=== PATIENT | male | born 1995 | race Caucasian/White ===

== ENCOUNTER 2020-04-04 14:49 | Emergency (ER) | payer SELFPAY ==
[2020-04-04 14:55] VITALS: BP 124/94; PULSE 89; TEMP 98.4; BMI 29.0
--- NOTE | 2020-04-04 14:58 | PDOC ---
Rapid Medical Evaluation Chief Complaint: Bone Injury Time Seen by Provider: 04/04/20 14:55 Medical Evaluation: Allergies Allergy/AdvReac Type Severity Reaction Status Date / Time No Known Allergies Allergy Verified 04/04/20 14:50 Vital Signs Temp Pulse Resp BP Pulse Ox 98.4 F 89 20 124/94 100 04/04/20 14:50 04/04/20 14:50 04/04/20 14:50 04/04/20 14:50 04/04/20 14:50 04/04/20 14:57 I have performed a brief in-person evaluation of this patient. The patient presents with a chief complaint of:R wrist injury at work today Pertinent physical exam findings:deformity to R wrist I have ordered the following:xray The patient will proceed to the ED for further evaluation. Discharge Disposition - Diagnosis Wrist injury Qualifiers: Encounter type: initial encounter Laterality: right Qualified Code(s): S69.91XA - Unspecified injury of right wrist, hand and finger(s), initial encounter - Referrals - Patient Instructions - Post Discharge Activity
--- NOTE | 2020-04-04 15:15 | PDOC ---
History of Present Illness - General Chief Complaint: Bone Injury Stated Complaint: INJURY Time Seen by Provider: 04/04/20 14:55 - History of Present Illness Initial Comments: 04/04/20 15:13 25-year-old male without comorbidities presents for evaluation of right wrist pain. Patient is current on tetanus. He states he was working with a jackhammer with another worker when the jackhammer accidentally struck him in his right wrist. He points to the radial aspect of the right wrist as the area of his discomfort. Past History - Medical History Allergies/Adverse Reactions: Allergies Allergy/AdvReac Type Severity Reaction Status Date / Time No Known Allergies Allergy Verified 04/04/20 14:50 COPD: No Other medical history: DENIES - Immunization History Immunization Up to Date: Yes - Psycho-Social/Smoking History Smoking History: Never smoked - Substance Abuse Hx (Audit-C & DAST Scrn) How often the patient has a drink containing alcohol: 2-4 times / month Number of drinks the patient has on a typical day: 1 or 2 How often the patient has six or more drinks on one occasion: Never Score: In Men: 4 or > Positive; In Women: 3 or > Positive: 2 Screen Result (Pos requires Nsg. Audit-10AR): Negative In the last yr the pt used illegal drug/Rx for NonMed reason: No Score: Yes response is considered Positive: 0 Screen Result (Positive result requires Nsg. DAST-10): Negative Review of Systems - Review of Systems Musculoskeletal: Yes: Joint Pain *Physical Exam - Vital Signs Last Vital Signs Temp Pulse Resp BP Pulse Ox 98.4 F 89 20 124/94 100 04/04/20 14:50 04/04/20 14:50 04/04/20 14:50 04/04/20 14:50 04/04/20 14:50 - Physical Exam 04/04/20 15:13 Right wrist skin color and temperature normal.swelling at the radial aspect of the right wrist with a superficial abrasion on the radial aspect of the right wrist. 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 This is a right wrist contusion probably deep bony contusion. I explained to the patient I am unable to rule out a microfracture or occult fracture at this time. [id number] wrist splint nonweightbearing follow-up with orthopedic surgery course of anti-inflammatories was also sent to his pharmacy. Patient instructed to remove the brace for hygiene only he may sleep in it. No work until cleared by orthopedic surgery I have reviewed the pathophysiology with the patient. They are in agreement with the treatment plan all questions were answered to their satisfaction. Understanding for follow-up without fail was also conveyed to the patient. Again they are in agreement. Discharge - Discharge Information Problems reviewed: Yes Clinical Impression/Diagnosis: Wrist injury Qualifiers: Encounter type: initial encounter Laterality: right Qualified Code(s): S69.91XA - Unspecified injury of right wrist, hand and finger(s), initial encounter Condition: Stable Disposition: HOME - Admission No - Follow up/Referral Referrals: Oleg Toure DO [Staff Physician] - - Patient Discharge Instructions Additional Instructions: You may take [id number] Tylenol as directed for additional pain medication. I have given you a prescription for prescription strength Motrin. Please take that as directed with food and discontinue the medication if it bothers her stomach. Return to the emergency room for worsening symptoms and without fail follow-up with orthopedic surgery in 1 to 2 days for further evaluation and treatment options. No work until cleared by orthopedic surgery. - Post Discharge Activity Work/Back to School Note: Back to Work
== END 2020-04-04 15:55 | disposition home or self-care (01) ==
LOC: JERFT 14:49
DX: S69.91XA Unspecified injury of right wrist, hand and finger(s), initial encounter (principal); W22.8XXA Striking against or struck by other objects, initial encounter
CPT/HCPCS: 73110-TC-RT-FY; 99283-25